=== PATIENT | male | born 1995 | race Caucasian/White ===

== ENCOUNTER 2016-12-14 22:39 | Emergency (ER) | payer OTHER ==
[2016-12-14 23:46] VITALS: BP 131/107
== END 2016-12-14 23:46 | disposition home or self-care (01) ==
LOC: ED 22:39
DX: J30.9 Allergic rhinitis, unspecified (principal); R11.10 Vomiting, unspecified; R10.13 Epigastric pain
CPT/HCPCS: Q0162

== ENCOUNTER 2016-12-21 10:59 | Emergency (ER) | payer OTHER ==
[~2016-12-21] VITALS: Ht 170.2 cm; Wt 83.5 kg
[2016-12-21 11:20] VITALS: BP 135/75
== END 2016-12-21 11:20 | disposition home or self-care (01) ==
LOC: ED 10:59
DX: Z00.00 Encounter for general adult medical examination without abnormal findings (principal)

== ENCOUNTER 2017-04-05 06:27 | Emergency (ER) | payer OTHER ==
[~2017-04-05] VITALS: Ht 167.6 cm; Wt 83.0 kg
[2017-04-05 09:53] VITALS: BP 122/73
== END 2017-04-05 09:41 | disposition home or self-care (01) ==
LOC: ED 06:27
DX: S93.401A Sprain of unspecified ligament of right ankle, initial encounter (principal); W50.0XXA Accidental hit or strike by another person, initial encounter; Y93.66 Activity, soccer; Y99.8 Other external cause status; Y92.89 Other specified places as the place of occurrence of the external cause
CPT/HCPCS: Q0092

== ENCOUNTER 2017-10-25 22:36 | Emergency (ER) | payer OTHER ==
[~2017-10-25] VITALS: Ht 167.6 cm; Wt 86.4 kg
[2017-10-25 22:56] VITALS: BP 121/61; Ht 167.6 cm; Wt 86.4 kg
== END 2017-10-26 01:03 | disposition home or self-care (01) ==
LOC: ED 22:36
DX: S83.92XA Sprain of unspecified site of left knee, initial encounter (principal); W10.8XXA Fall (on) (from) other stairs and steps, initial encounter; Y93.89 Activity, other specified; Y92.89 Other specified places as the place of occurrence of the external cause; Y99.8 Other external cause status
CPT/HCPCS: J1885; Q0092